=== PATIENT | female | born 1995 | race Caucasian/White ===

== ENCOUNTER → 2018-12-03 08:49 | Outpatient (CLI) | payer OTHER, SELFPAY ==
--- NOTE | 2018-12-03 08:57 | MR_ITS ---
MR head/brain wo con HISTORY: Headache with dizziness and nausea, family history of brain tumor ITS.REASON: INTRACTABLE MIGRAINE WITHOUT AURA,FAMILY HISTORY BRAIN TUMOR ORDERING PHYSICIAN: Jaron Sales MD PATIENT AGE: 23 years Comparison: None TECHNIQUE: Standard multiplanar multiecho sequences are performed without contrast. FINDINGS: No midline shift, mass effect, intracranial hemorrhage, or hydrocephalus. The cerebellopontine angle, cerebellum, and brainstem have an unremarkable appearance. There is normal wills-white matter differentiation. No abnormal white matter signal intensities are evident. No restricted diffusion. The hippocampal gyri and temporal horns are unremarkable. The pituitary, corpus callosum, optic chiasm, and cranial cervical junction have an unremarkable appearance. Mild mucosal thickening involves the maxillary sinuses and ethmoid sinuses. Small amount fluid is present in the mastoid sinuses on both sides. IMPRESSION: 1. No acute intracranial findings. 2. Paranasal sinus disease with small bilateral mastoid effusions
== END ==
PROVIDERS: PCP Internal Medicine Adolescent Medicine; Visit Provider Internal Medicine Adolescent Medicine
DX: G43.011 Migraine without aura, intractable, with status migrainosus (principal); Z84.89 Family history of other specified conditions
CPT/HCPCS: 70551

== ENCOUNTER 2022-03-17 22:30 | Emergency (ER) | payer SELFPAY ==
[2022-03-17 22:35] VITALS: BP 127/77; PULSE 92; RESP 19; TEMP 37.4; O2SAT 96; BMI 44.8
[2022-03-17 22:49] VITALS: BP 118/78; BP 122/77; BP 123/83; PULSE 131; PULSE 144; PULSE 93
[2022-03-17 23:00] VITALS: BP 121/78; PULSE 96; O2SAT 99
--- NOTE | 2022-03-17 23:13 | CT_ITS ---
PROCEDURE INFORMATION: Exam: CT Head Without Contrast Exam date and time: 03/18/2022 12:07 AM Age: 26 years old Clinical indication: Injury or trauma; Fall; Blunt trauma (contusions or hematomas); Consciousness not specified TECHNIQUE: Imaging protocol: Computed tomography of the head without contrast. Radiation optimization: All CT scans at this facility use at least one of these dose optimization techniques: automated exposure control; mA and/or kV adjustment per patient size (includes targeted exams where dose is matched to clinical indication); or iterative reconstruction. COMPARISON: [facility] MR head/brain wo con 12/03/2018 9:46 AM FINDINGS: Brain: Normal. No hemorrhage. Age appropriate white matter. No mass effect. No focal mass. The wills-white matter junction is intact. Cerebral ventricles: No ventriculomegaly. Paranasal sinuses: Visualized sinuses are unremarkable. No fluid levels. Mastoid air cells: Visualized mastoid air cells are well aerated. Bones/joints: Unremarkable. No acute fracture. Soft tissues: Unremarkable. IMPRESSION: Normal examination of brain. There is no acute intracranial abnormality. There is no structural abnormality.
--- NOTE | 2022-03-17 23:13 | CT_ITS ---
PROCEDURE INFORMATION: Exam: CT Cervical Spine Without Contrast Exam date and time: 03/18/2022 12:09 AM Age: 26 years old Clinical indication: Injury or trauma; Fall; Blunt trauma TECHNIQUE: Imaging protocol: Computed tomography of the cervical spine without contrast. Radiation optimization: All CT scans at this facility use at least one of these dose optimization techniques: automated exposure control; mA and/or kV adjustment per patient size (includes targeted exams where dose is matched to clinical indication); or iterative reconstruction. COMPARISON: CT HEAD/BRAIN WO CON 03/18/2022 12:07 AM FINDINGS: Bones/joints: No acute fracture. Normal alignment. Discs/Spinal canal/Neural foramina: No significant disc protrusion. No severe spinal canal stenosis. No significant neural foraminal narrowing. Lungs: Lung apices are normal. Soft tissues: Unremarkable. IMPRESSION: No evidence for significant traumatic injury of the cervical spine.
--- NOTE | 2022-03-17 23:13 | XR_ITS ---
PROCEDURE INFORMATION: Exam: XR Chest Exam date and time: 03/17/2022 11:58 PM Age: 26 years old Clinical indication: Injury or trauma; Fall; Blunt trauma (contusions or hematomas) TECHNIQUE: Imaging protocol: Radiologic exam of the chest. Views: 1 view. COMPARISON: ABDPELW/O CT ABD PELVIS W/O CONTRAST 11/22/2016 8:28 AM FINDINGS: Lungs: Unremarkable. No consolidation. Pleural spaces: Unremarkable. No pleural effusion. No pneumothorax. Heart/Mediastinum: Unremarkable. No cardiomegaly. Bones/joints: Unremarkable. IMPRESSION: No acute findings.
--- NOTE | 2022-03-17 23:13 | XR_ITS ---
PROCEDURE INFORMATION: Exam: XR Pelvis Exam date and time: 03/17/2022 11:59 PM Age: 26 years old Clinical indication: Injury or trauma; Fall; Blunt trauma (contusions or hematomas); Bilateral; Pelvic region; Additional info: Syncope, fall TECHNIQUE: Imaging protocol: Radiologic exam of the pelvis. Views: 1 or 2 view. COMPARISON: ABDPELW/O CT ABD PELVIS W/O CONTRAST 11/22/2016 8:28 AM FINDINGS: Bones/joints: Unremarkable. No acute fracture. Soft tissues: Unremarkable. IMPRESSION: No acute findings.
[2022-03-17 23:23] LABS: Coronavirus 19, PCR Not Detected (NotDetected); Influenza A, PCR Not Detected (NotDetected); Influenza B, PCR Not Detected (NotDetected)
[2022-03-17 23:25] LABS: Alanine Aminotransferase 35 U/L (12-78); Albumin Level 4.3 g/dl (3.5-5.0); Albumin/Globulin Ratio 1.3 (1.1-1.8); Alkaline Phosphatase 74 U/L (38-126); Anion Gap 10.7 mEq/L (5-15); Aspartate Amino Transferase 37 U/L (14-36); Blood Urea Nitrogen 7 mg/dl (7-17); Calcium 9.2 mg/dl (8.4-10.2); Carbon Dioxide 29 mmol/L (22.0-30.0); Chloride 102 mmol/L (98-107); Creatinine Clearance Estimated 97 mL/min (50-200); Estimated Glomerular Filt Rate 102 ml/min (>60); GFR (African American) 123 ML/MIN (>60); Globulin 3.2 g/dL (1.3-3.2); Glucose 110 mg/dl (74-100); Potassium 3.7 mmoL/L (3.5-5.1); Sodium 138 mmol/L (136-145); Total Protein,Serum 7.5 g/dl (6.3-8.2)
[2022-03-17 23:28] LABS: Bilirubin,Total 0.1 mg/dl (0.2-1.3)
[2022-03-17 23:30] VITALS: BP 117/65; PULSE 94; O2SAT 99
[2022-03-17 23:33] LABS: Basophils # 0.2 K/mm3 (0-0.2); Basophils % 2.3 % (0.1-2.0); Eosinophils # 0.3 K/mm3 (0.0-0.4); Eosinophils % 4.2 % (0.1-12.0); Hematocrit 45.1 % (37.0-47.0); Hemoglobin 14.1 g/dL (12.2-16.2); Lymphocytes # 1.1 K/mm3 (0.7-4.5); Lymphocytes % 14.7 % (10-50); Mean Corpuscular HGB Conc 31.1 g/dL (31.8-35.4); Mean Corpuscular Hemoglobin 29.7 pg (27.0-31.2); Mean Corpuscular Volume 95.4 fl (81-99); Mean Platelet Volume 8.2 fl (7.4-10.4); Monocytes # 0.3 K/mm3 (0.1-1.0); Neutrophils # 5.6 K/mm3 (1.8-7.8); Neutrophils % 74.7 % (37.0-80.0); Platelet Count 286 K/mm3 (142-424); Red Blood Count 4.73 M/mm3 (4.20-5.40); Red Cell Distribution Width 13.6 % (11.5-17.5); White Blood Count 7.5 K/mm3 (4.8-10.8)
[2022-03-17 23:59] LABS: Microscopic, Urine URINE MICROSCOPIC (MICROSCOPIC)
[2022-03-18 00:01] LABS: Appearance,Urine CLEAR (Clear); Bilirubin,Urine Negative (Negative); Blood, Urine Negative (Negative); Color,Urine YELLOW (Yellow); Glucose,Urine (UA) Negative (Negative); Ketones,Urine Negative (Negative); Leukocyte Esterase,Urine Negative (Negative); Nitrate,Urine Negative (Negative); Protein,Urine Negative (Negative); Specific Gravity, Urine <= 1.005 (1.005-1.030); Urobilinogen,Urine 0.2 EU/dl (0.2)
[2022-03-18 00:04] LABS: Urine Pregnancy, HCG Qual. Negative (Negative)
--- NOTE | 2022-03-18 00:06 | PC.NURSE ---
Pt gone to RAD
[2022-03-18 00:09] LABS: Bacteria,Urine Trace /lpf; WBC,Urine Occasional #/hpf (0-3)
[2022-03-18 00:13] LABS: Strep Scrn Group A (Rapid) Negative (Negative)
--- NOTE | 2022-03-18 00:15 | PC.NURSE ---
Pt back from RAD
[2022-03-18 00:30] VITALS: BP 124/68; PULSE 92; O2SAT 99
--- NOTE | 2022-03-18 00:35 | [facility].EDSYNC ---
ED Disposition Clinical Impression: Vasovagal syncope, Bronchitis Disposition: Home, Self-Care Condition on Discharge: Good Instructions: DI for Syncope in Adults (Fainting) Additional Instructions: fluids and use meds and see pcp for follow up Prescriptions: Azithromycin [Zithromax 250mg tab] 250 mg PO DIRECTED #6 tab Referrals: Jaron Sales MD [Primary Care Provider] - - Critical Care Critical Care Time: No Attestation: On 03/17/22, the high probability of a clinically significant, sudden or life threatening deterioration of the following system(s) required my full and direct attention, intervention and personal management. The time I documented below is in addition to time spent performing reported procedures but includes the following listed in this critical care notation. Medical Decision Making - Medical Records Medical records reviewed: Yes: I reviewed the patient's medical records. - Scott Inquiry Pt receiving controlled substance: No Vital Signs: 03/17/22 22:35 03/17/22 22:49 03/17/22 23:00 Temperature 99.4 F Temperature Source Oral Pulse Rate 96 H Pulse Rate [Orthostatic Lying Left Radial] 93 H Pulse Rate [Orthostatic Sitting Left Radial] 131 H Pulse Rate [Orthostatic Standing Left Radial] 144 H Pulse Rate [Right Brachial] 92 H Respiratory Rate 19 Blood Pressure 121/78 Blood Pressure [Orthostatic Lying Right Arm] 122/77 Blood Pressure [Orthostatic Sitting Right Arm] 118/78 Blood Pressure [Orthostatic Standing Right Arm] 123/83 Blood Pressure [Right Arm] 127/77 Blood Pressure Mean 91 Blood Pressure Mean [Right Arm] 93 Blood Pressure Source [Right Arm] Automatic Cuff Blood Pressure Position [Right Arm] Sitting 02 Sat by Pulse Oximetry 96 99 Oxygen Delivery Method Room Air Room Air 03/17/22 23:30 03/18/22 00:30 Temperature Temperature Source Pulse Rate 94 H 92 H Pulse Rate [Orthostatic Lying Left Radial] Pulse Rate [Orthostatic Sitting Left Radial] Pulse Rate [Orthostatic Standing Left Radial] Pulse Rate [Right Brachial] Respiratory Rate Blood Pressure 117/65 124/68 Blood Pressure [Orthostatic Lying Right Arm] Blood Pressure [Orthostatic Sitting Right Arm] Blood Pressure [Orthostatic Standing Right Arm] Blood Pressure [Right Arm] Blood Pressure Mean 81 Blood Pressure Mean [Right Arm] Blood Pressure Source [Right Arm] Blood Pressure Position [Right Arm] 02 Sat by Pulse Oximetry 99 99 Oxygen Delivery Method Room Air Room Air - Lab Data Lab results reviewed: Yes: I reviewed the patient's lab results. Lab Results 03/17/22 22:37: SARS-CoV-2 (PCR) Not detected, Influenza A Untype (PCR) Not detected, Influenza Type B (PCR) Not detected 03/17/22 22:43: WBC 7.5, RBC 4.73, Hgb 14.1, Hct 45.1, MCV 95.4, MCH 29.7, MCHC 31.1 L, RDW 13.6, Plt Count 286, MPV 8.2, Neut % (Auto) 74.7, Lymph % (Auto) 14.7, [place] % (Auto) 4.0, Eos % (Auto) 4.2, Baso % (Auto) 2.3 H, Neut # (Auto) 5.6, Lymph # (Auto) 1.1, [place] # (Auto) 0.3, Eos # (Auto) 0.3, Baso # (Auto) 0.2 03/17/22 22:43: Sodium 138, Potassium 3.7, Chloride 102, Carbon Dioxide 29, Anion Gap 10.7, BUN 7, Creatinine 0.70, Estimated Creat Clear 97, Estimated GFR 102, Est GFR ( Amer) 123, Glucose 110 H, Calcium 9.2, Total Bilirubin 0.1 L, AST 37 H, ALT 35, Alkaline Phosphatase 74, Total Protein 7.5, Albumin 4.3, Globulin 3.2, Albumin/Globulin Ratio 1.3 03/17/22 23:55: Urine Color Yellow, Urine Appearance Clear, Urine pH 6.0, Ur Specific [place] <= 1.005, Urine Protein Negative, Urine Glucose (UA) Negative, Urine Ketones Negative, Urine Blood Negative, Urine Nitrate Negative, Urine Bilirubin Negative, Urine Urobilinogen 0.2, Ur Leukocyte Esterase Negative, Urine RBC None, Urine WBC Occasional, Ur Squamous Epith Cells 5-10, Urine Bacteria Trace 03/17/22 23:55: Urine HCG, Qual Negative 03/17/22 23:55: Group A Strep Rapid Negative Result diagrams: 03/17/22 22:43 03/17/22 22:43
[2022-03-18 00:49] VITALS: BP 124/68; PULSE 89; RESP 16; TEMP 37.2; O2SAT 98
== END 2022-03-18 01:02 | disposition home or self-care (01) ==
PROVIDERS: Emergency Provider Emergency Medicine; PCP Internal Medicine Adolescent Medicine
DX: R55 Syncope and collapse (principal); J40 Bronchitis, not specified as acute or chronic; Z88.0 Allergy status to penicillin
CPT/HCPCS: 70450; 71045; 72125; 72170; 80053; 81001; 81025; 85025; 87430; 96365; 99284; C9803; U0003; U0005